=== PATIENT | male | born 1950 | race Caucasian/White ===

== ENCOUNTER → 2024-02-15 | Outpatient (CLI) | payer MEDICARE, OTHER ==
--- NOTE | 2024-02-12 14:52 | NUR ---
LMOM WITH INSTRUCTIONS AND CALL BACK NUMBER
[~2024-02-15] VITALS: Ht 167.6 cm; Wt 74.3 kg
[~2024-02-15] MED LIST: ALTACE 5MG5 MG PO; ASPIRIN E.C. 8181 MG PO; CRESTOR40 MG PO; CVS SPECTRAVIT1 EA15 PO; FLOMAX 0.40.4 MG/CAP PO; JARDIANCE10 PO; MASON NATURAL1000 MG PO; NATURE'S BLEND500 M1 PO; PROBIOTIC BLEN1 EACH PO; THE MEDICINE S200 M2 PO; TOPROL XL 50MG50 MG PO; VITAMIN C500 MG PO
[2024-02-15 12:40] VITALS: BP 124/81; PULSE 82; TEMP 98.1
[2024-02-15 13:30] VITALS: BP 134/67; PULSE 83
== END ==
LOC: COL.RAD 12:33
DX: C82.11 Follicular lymphoma grade II, lymph nodes of head, face, and neck (principal)